=== PATIENT | male | born 1990 | race Caucasian/White ===

== ENCOUNTER → 2024-04-10 13:24 | Outpatient (REF) | payer OTHER, SELFPAY | LOC: HWRAD 13:24 | PROVIDERS: ATTENDING PHYSICIAN Registered Nurse | DX: M25.511 Pain in right shoulder (principal) | CPT/HCPCS: 73030 ==

== ENCOUNTER → 2024-04-25 11:16 | Outpatient (REF) | payer OTHER, SELFPAY | LOC: HWRAD 11:16 | PROVIDERS: ATTENDING PHYSICIAN Registered Nurse | DX: E04.1 Nontoxic single thyroid nodule (principal) | CPT/HCPCS: 76536 ==

== ENCOUNTER → 2024-05-11 10:46 | Outpatient (REF) | payer OTHER, SELFPAY | LOC: MRI 3T 10:46 | PROVIDERS: ATTENDING PHYSICIAN Registered Nurse | DX: M25.511 Pain in right shoulder (principal) | CPT/HCPCS: 73221 ==